=== PATIENT | female | born 1940 | race Caucasian/White ===

== ENCOUNTER → 2024-02-18 08:13 | Outpatient (REF) | payer MEDICARE, BC, SELFPAY ==
[2024-02-18 10:01] LABS: % Basophils 0.4 % (0-2); % Eosinophils 4.3 % (0-6); % Immature Granulocytes 0.4 % (0-0.5); % Monocytes 7.5 % (1.7-9.3); % Neutrophils 58.4 % (42.2-75.2); Absolute Eosinophils 0.2 10^3/uL (0-0.7); Absolute Lymphocytes 1.4 10^3/uL (1.2-3.4); Absolute Monocytes 0.4 10^3/uL (0.1-0.6); Absolute Neutrophils 2.7 10^3/uL (1.4-6.5); Hematocrit 44.6 % (37.0-47.0); Hemoglobin 14.6 g/dL (12.0-16.0); Mean Corp Hgb Conc. 32.7 g/dL (33.0-37.0); Mean Corpuscular Hgb 31.5 pg (27.0-31.0); Mean Corpuscular Volume 96.3 fL (81.0-99.0); Mean Platelet Volume 10.2 fL (7.4-10.4); Nucleated Red Blood Cells % 0 %; Platelet Count 187 10^3/uL (130-400); Red Blood Cell Count 4.63 10^6/uL (4.20-5.40); Red Cell Dist. Width 13.8 % (11.5-14.5); White Blood Cell Count 4.7 10^3/uL (4.8-10.8)
[2024-02-18 10:34] LABS: ALT (SGPT) 17 U/L (0-35); AST (SGOT) 31 U/L (14-36); Albumin 4.4 g/dl (3.5-5.0); Alkaline Phosphatase 49 U/L (38-126); Blood Urea Nitrogen 13 mg/dl (7-17); Calcium 9.2 mg/dl (8.4-10.2); Carbon Dioxide 28 mmol/L (22-30); Chloride 105 mmol/L (98-107); Glucose 105 mg/dl (70-99); HDL Cholesterol 96 mg/dl; Iron 106 ug/dl (37-170); LDL Cholesterol, Calculated 55 mg/dl; Magnesium 2.1 mg/dl (1.6-2.3); Potassium 4.5 mmol/L (3.5-5.1); Sodium 140 mmol/L (135-145); Total Bilirubin 0.5 mg/dl (0.2-1.3); Total Cholesterol 164 mg/dl (50-199); Total Protein 6.6 g/dl (6.3-8.2); Triglyceride 65 mg/dl (10-149); Very Low Density Lipoprotein 13 mg/dl (0-30); eGFR > 60.00
[2024-02-18 10:38] LABS: IgA 177 mg/dl (70-400)
[2024-02-18 10:43] LABS: Free T4 1.59 ng/dl (0.78-2.19); Vitamin D, 25-OH*** 34.2 ng/mL (30-80)
[2024-02-18 10:50] LABS: Percent Saturation 31 % (20-50); Total Iron Binding Capacity 332 ug/dl (265-497)
[2024-02-18 10:56] LABS: TSH 0.73 uIU/ml (0.47-4.68)
[2024-02-18 11:00] LABS: Ferritin 26.6 ng/ml (11.1-264.0)
[2024-02-18 11:16] LABS: Vitamin B12 499 pg/ml (239-931)
[2024-02-20 16:13] LABS: Endomysial IgA Antibody Titer <1:10 (<1:10)
== END ==
LOC: REG 08:13
PROVIDERS: ATTENDING PHYSICIAN Internal Medicine; FAMILY PHYSICIAN Nurse Practitioner Primary Care
DX: R14.0 Abdominal distension (gaseous) (principal); Z86.010 Personal history of colon polyps; I48.0 Paroxysmal atrial fibrillation; E78.2 Mixed hyperlipidemia; E03.8 Other specified hypothyroidism; K21.9 Gastro-esophageal reflux disease without esophagitis; M80.00XA Age-related osteoporosis with current pathological fracture, unspecified site, initial encounter for fracture; Z79.899 Other long term (current) drug therapy
CPT/HCPCS: 36415; 80053; 80061; 82306; 82607; 82728; 82784; 83516; 83540; 83550; 83735; 84439; 84443; 85025; 86231

== ENCOUNTER → 2024-05-21 09:57 | Outpatient (REF) | payer MEDICARE, BC, SELFPAY | LOC: RCS 09:57 | PROVIDERS: ATTENDING PHYSICIAN Nurse Practitioner Primary Care | DX: I48.0 Paroxysmal atrial fibrillation (principal); I49.1 Atrial premature depolarization; R07.89 Other chest pain | CPT/HCPCS: 93306 ==

== ENCOUNTER → 2024-05-26 07:23 | Outpatient (REF) | payer MEDICARE, BC, SELFPAY ==
[2024-05-26] MEDS: FLUSH (NSS) 1 FLUSH IV (09:50)
[2024-05-26] MEDS: LEXISCAN 0.4 MG IV (09:50)
== END ==
LOC: RCS 07:23
PROVIDERS: ATTENDING PHYSICIAN Nurse Practitioner Primary Care; REFERRING PHYSICIAN Internal Medicine Cardiovascular Disease
DX: E78.2 Mixed hyperlipidemia (principal); R07.89 Other chest pain
CPT/HCPCS: 78452; 93017; A9500; J2785

== ENCOUNTER → 2024-06-10 10:06 | Outpatient (REF) | payer MEDICARE, BC, SELFPAY | LOC: PAVMRI 10:06 | PROVIDERS: ATTENDING PHYSICIAN Nurse Practitioner Primary Care | DX: M80.00XA Age-related osteoporosis with current pathological fracture, unspecified site, initial encounter for fracture (principal); G60.9 Hereditary and idiopathic neuropathy, unspecified; M48.061 Spinal stenosis, lumbar region without neurogenic claudication | CPT/HCPCS: 72148 ==

== ENCOUNTER → 2024-06-24 15:02 | Outpatient (REF) | payer MEDICARE, BC, SELFPAY ==
[2024-06-29 15:36] LABS: Pancreatic Elastase, Fecal >800 ug/g (>=100)
== END ==
LOC: REG 15:02
PROVIDERS: ATTENDING PHYSICIAN Internal Medicine Cardiovascular Disease; FAMILY PHYSICIAN Internal Medicine Geriatric Medicine; OTHER PHYSICIAN Internal Medicine
DX: I65.23 Occlusion and stenosis of bilateral carotid arteries (principal); R14.0 Abdominal distension (gaseous); Z86.0109 Personal history of other colon polyps
CPT/HCPCS: 82653; 93880

== ENCOUNTER 2024-11-02 06:01 | Day surgery (SDC) | payer MEDICARE, BC, SELFPAY ==
[2024-10-17 09:00] VITALS: BMI 17.7
[2024-11-02] VITALS (10 sets, daily range): BP systolic 98–141; BP diastolic 49–77; BMI 17.6
--- NOTE | 2024-11-02 08:14 | ITS.CL.ABL ---
[employer] - Ablation
Ablation
Procedure Report:
ELECTROPHYSIOLOGIC STUDY AND POSSIBLE ABLATION
DATE: November 02, 2024
Primary Care Provider: CEFERINO Rico
Primary Vacuum Form Operator: Dr Betsy Elliott
INDICATION:
Symptomatic Atrial Fibrillation and atrial flutter, paroxysmal.
HISTORY: See H and P.
Symptomatic AF, poorly controlled with attempted medical therapy
HAS-BLED:
Age
CHADSVASc: 4
Age
Vascular Dz
F Gender
PRESENTING RHYTHM: SR
HISTORY: See H and P.
Symptomatic AF, poorly controlled with attempted medical therapy.
ANTICOAGULATION: Rivaroxaban 20 mg daily
'TIME-OUT': called and confirmed.
SEDATION/ANESTHESIA: provided via the anesthesia department using general anesthesia.
PROCEDURE:
Ultrasound Guidance with real-time visualization of needle insertion and vessel patency performed by ar for femoral venous Vascular Access. Images were taken and saved for the patient's permanent record. Imaging findings typical femoral venous
anatomy. Direct visualization of needle puncture into the femoral vein was observed and recorded.
A decapolar CS catheter was placed within the CS for mapping and pacing.
The intracardiac ultrasound catheter was positioned in the RA for continuous intracardiac ultrasound imaging.
Heparin bolus and infusion to target ACT at 300 -350 seconds was administered. Transseptal puncture was performed. This entailed advancing a sheath with dilator into the superior vena cava and withdrawing both (monitoring intracardiac ultrasound,
fluoroscopy and tip pressure) with the tip oriented toward the atrial septum. The fossa ovalis was engaged (indicated by sudden displacement of the sheath tip as well as tenting of the fossa seen on intracardiac ultrasound).
Transseptal puncture was performed. Left atrial catheter position was confirmed by echocardiographic imaging, pressure monitoring (LA mean pressure 10 mm Hg) and fluoroscopy. The sheath was advanced over the dilator and positioned in the left
atrium.
The [employer] multipolar mapping/ablation Sphere-9 catheter was positioned through the transseptal sheath for high density mapping.
Geometry and voltage mapping was performed using the [employer] mapping system for three-dimensional electroanatomical mapping.
Catheter positioning was guided and confirmed using both I.C.E. and fluoroscopy.
PV isolation approach was used to electrically isolate each PV ostia (LSPV, LIPV, RSPV, RIPV).
Additional energy applications/additional ablation set was required to accomplish wide area circumferential ablation around each of the pulmonary vein sets and additionally ablation to accomplish LA posterior wall ablation.
Programmed electrical stimulation was performed and with burst atrial pacing at 300 ms and irregular atrial tachycardia was induced this degenerated to atrial fibrillation. Cardioversion restored sinus rhythm and with catheter manipulation of the
decapolar catheter in the right atrium atrial fibrillation was once again induced and cardioversion performed. Following this programmed electrical stimulation with burst atrial pacing as well as delivery of atrial decremental extrastimuli failed
to induce any arrhythmias.
Remapping with the Sphere-9 catheter found that all PVPs were eliminated at each vein demonstrating entrance block. Also pacing around the the circumference of the ostia was performed at 10 ma and 2.0 msec output to assess for exit block. This
demonstrated electrical isolation at each of the pulmonary vein ostia (LSPV, LIPV, RSPV, RIPV). Mapping demonstrated an area of recovered atrial electrograms at the floor of the left atrium posteriorly which were addressed with additional ablation
using pulsed electric field energy. Thereafter there is entrance and exit block at the LA posterior wall.
Programmed electrostimulation failed to induce any sustained arrhythmias.
There is a history of atrial flutter observed on outpatient monitoring (uncertain if typical or atypical). Given the inability to induce sustained atrial flutter or sustained regular atrial tachycardia no additional ablation was performed after PV
isolation and isolation of the posterior wall of the left atrium.
I.C.E. :
Pre-Ablation Post-Ablation
LVEF: 55 % 55 %
WMA: none none
Pericardial effusion: none none
COMPLICATIONS:
None
SUMMARY:
- Mapping and ablation to isolate the PVs
- Additional AF ablation set after PVI.
- 3-D Electroanatomical Mapping
- Intracardiac Ultrasound
- Ultrasound guidance for vascular access
Post ablation, I discussed today's findings and results with the patient's daughter, Karon.
RECOMMENDATIONS:
- Observe in monitored bed.
- Maintain oral anticoagulation.
- Maintain planned office visit with Dr Betsy Elliott 02/14/25
- Continue cardiovascular care with Dr Betsy Elliott
- Would maintain lifelong oral anticoagulation given her elevated CHADSVASc = 4
- Unable to induce a mappable atrial flutter therefore no atrial flutter ablation was performed. Should she recur with atrial arrhythmias including atrial flutter will consider remapping and if still uninducible at that point would then consider
empiric CTI ablation even given uncertainty of her clinical arrhythmia being CTI dependent.
Copy to:
CEFERINO Rico
Dr Betsy Elliott
[2024-11-02 09:20] LABS: ACT-LR - POC 364 Seconds (116-155)
[2024-11-02 09:44] LABS: ACT-LR - POC 358 Seconds (116-155)
[2024-11-02 10:17] LABS: ACT-LR - POC > 397 Seconds (116-155)
[2024-11-02] MEDS: ANESTHETIC LOZENGE 1 LOZENGE PO (10:56)
--- NOTE | 2024-11-02 14:11 | W.PN.UPDATE ---
Addendum entered and electronically signed by CEFERINO Mcguire 11/02/24 14:15:
Her HR has been 40-60, we will decrease her metoprolol to 25mg daily starting tomorrow.
Original Note:
Update Note
Progress Note Update
84 yo WF s/p PVI (same day). She denies cp, sob, len diet, voiding, amb w/o dizziness, EKG SR/SB, R fem site c/d/i. She will resume Eliquis tonight at home. Activity restrictions reviewed. She will f/u DCA in 2 mo. She is for d/c home after 230pm.
== END 2024-11-02 14:30 | disposition home or self-care (01) ==
LOC: CATH 06:01
PROVIDERS: ATTENDING PHYSICIAN Internal Medicine Cardiovascular Disease; FAMILY PHYSICIAN Nurse Practitioner Primary Care; OTHER PHYSICIAN Internal Medicine Cardiovascular Disease
DX: I48.0 Paroxysmal atrial fibrillation (principal); I44.0 Atrioventricular block, first degree; I70.0 Atherosclerosis of aorta; I65.29 Occlusion and stenosis of unspecified carotid artery; I49.3 Ventricular premature depolarization; I49.1 Atrial premature depolarization; I08.0 Rheumatic disorders of both mitral and aortic valves; J43.9 Emphysema, unspecified; K21.9 Gastro-esophageal reflux disease without esophagitis; K22.70 Barrett's esophagus without dysplasia; Z86.0100 Personal history of colon polyps, unspecified; K57.90 Diverticulosis of intestine, part unspecified, without perforation or abscess without bleeding; K76.0 Fatty (change of) liver, not elsewhere classified; K58.9 Irritable bowel syndrome, unspecified; Z87.19 Personal history of other diseases of the digestive system; G25.81 Restless legs syndrome; G62.9 Polyneuropathy, unspecified; M51.369 Other intervertebral disc degeneration, lumbar region without mention of lumbar back pain or lower extremity pain; M19.90 Unspecified osteoarthritis, unspecified site; E03.9 Hypothyroidism, unspecified; I73.00 Raynaud's syndrome without gangrene; M85.80 Other specified disorders of bone density and structure, unspecified site; F41.9 Anxiety disorder, unspecified; G47.00 Insomnia, unspecified; Z87.891 Personal history of nicotine dependence; Z79.890 Hormone replacement therapy; Z79.899 Other long term (current) drug therapy; Z79.01 Long term (current) use of anticoagulants; Z88.0 Allergy status to penicillin; Z88.2 Allergy status to sulfonamides; Z88.1 Allergy status to other antibiotic agents
CPT/HCPCS: C1766; C1730; C1894; C1892; C1733; 76937; 85347; 86900; 86901; 93005; 93656; 93657

== ENCOUNTER → 2025-01-12 09:55 | Outpatient (REF) | payer MEDICARE, BC, SELFPAY | LOC: RAD 09:55 | PROVIDERS: ATTENDING PHYSICIAN Nurse Practitioner Primary Care | DX: M80.00XA Age-related osteoporosis with current pathological fracture, unspecified site, initial encounter for fracture (principal); N95.9 Unspecified menopausal and perimenopausal disorder | CPT/HCPCS: 77080 ==

== ENCOUNTER → 2025-03-06 06:58 | Outpatient (REF) | payer MEDICARE, BC, SELFPAY ==
[2025-03-06 07:39] LABS: % Basophils 0.7 % (0-2); % Eosinophils 3.5 % (0-6); % Immature Granulocytes 0.2 % (0-0.5); % Lymphocytes 33.7 % (20.5-51.1); % Monocytes 8.9 % (1.7-9.3); Absolute Eosinophils 0.1 10^3/uL (0-0.7); Absolute Lymphocytes 1.4 10^3/uL (1.2-3.4); Absolute Monocytes 0.4 10^3/uL (0.1-0.6); Absolute Neutrophils 2.1 10^3/uL (1.4-6.5); Hematocrit 42.4 % (37.0-47.0); Hemoglobin 13.9 g/dL (12.0-16.0); Mean Corp Hgb Conc. 32.8 g/dL (33.0-37.0); Mean Corpuscular Hgb 31.2 pg (27.0-31.0); Mean Corpuscular Volume 95.1 fL (81.0-99.0); Mean Platelet Volume 9.9 fL (7.4-10.4); Nucleated Red Blood Cells % 0 %; Platelet Count 172 10^3/uL (130-400); Red Blood Cell Count 4.46 10^6/uL (4.20-5.40); Red Cell Dist. Width 13.7 % (11.5-14.5)
[2025-03-06 08:22] LABS: ALT (SGPT) 27 U/L (0-35); AST (SGOT) 38 U/L (14-36); Alkaline Phosphatase 51 U/L (38-126); Blood Urea Nitrogen 15 mg/dl (7-17); Calcium 9.6 mg/dl (8.4-10.2); Carbon Dioxide 26 mmol/L (22-30); Chloride 107 mmol/L (98-107); Creatine Phosphokinase 175 U/L (30-135); Glucose 109 mg/dl (70-99); HDL Cholesterol 101 mg/dl; LDL Cholesterol, Calculated 57 mg/dl; Potassium 4.4 mmol/L (3.5-5.1); Sodium 142 mmol/L (135-145); Total Bilirubin 0.6 mg/dl (0.2-1.3); Total Cholesterol 172 mg/dl (50-199); Total Protein 7.5 g/dl (6.3-8.2); Triglyceride 74 mg/dl (10-149); Very Low Density Lipoprotein 14 mg/dl (0-30); eGFR > 60.00
[2025-03-06 08:56] LABS: Erythrocyte Sed Rate 8 mm/hour (0-20)
[2025-03-06 14:04] LABS: C-Reactive Protein < 5.00 mg/L (0.0-10.00)
[2025-03-06 14:32] LABS: Free T4 2.11 ng/dl (0.78-2.19)
[2025-03-06 17:20] LABS: Vitamin D, 25-OH*** 41.7 ng/mL (30-80)
[2025-03-06 20:44] LABS: Vitamin B12 372 pg/ml (239-931)
[2025-03-07 23:23] LABS: ANA, IgG Reflex to HEp-2 None Detected (None Detected)
[2025-03-09 00:20] LABS: Albumin 4.96 g/dL (3.75-5.01); Alpha 1 Globulin 0.33 g/dL (0.19-0.46); Alpha 2 Globulin 0.77 g/dL (0.48-1.05); Free Kappa Light Chains,Quant 13.45 mg/L (3.30-19.40); Free Lambda Light Chains,Quant 15.25 mg/L (5.71-26.30); IgA 169 mg/dL (68-408); IgG 495 mg/dL (768-1632); IgM 43 mg/dL (35-263); Immunofixation Electrophoresis IFE Done; Kappa/Lambda Fr Light Ratio 0.88 (0.26-1.65); Total Protein-Electrophoresis 7.4 g/dL (6.3-8.2)
== END ==
LOC: REG 06:58
PROVIDERS: ATTENDING PHYSICIAN Nurse Practitioner Primary Care
DX: E78.2 Mixed hyperlipidemia (principal); E03.8 Other specified hypothyroidism; G60.9 Hereditary and idiopathic neuropathy, unspecified; Z79.899 Other long term (current) drug therapy
CPT/HCPCS: 36415; 80053; 80061; 82306; 82550; 82607; 82784; 83521; 84155; 84165; 84439; 84443; 85025; 85652; 86038; 86140; 86334

== ENCOUNTER 2025-03-21 06:32 | Day surgery (SDC) | payer MEDICARE, BC, SELFPAY | END 2025-03-21 11:39 | disposition home or self-care (01) | LOC: GI 06:32 | PROVIDERS: ATTENDING PHYSICIAN Internal Medicine | DX: R14.0 Abdominal distension (gaseous) (principal); K22.4 Dyskinesia of esophagus; K22.70 Barrett's esophagus without dysplasia | CPT/HCPCS: 43239; 88305; 88342 ==

== ENCOUNTER → 2025-05-02 07:38 | Outpatient (REF) | payer MEDICARE, BC, SELFPAY ==
[2025-05-02 09:19] LABS: Hematocrit 41.0 % (37.0-47.0); Hemoglobin 13.1 g/dL (12.0-16.0); Mean Corp Hgb Conc. 32.0 g/dL (33.0-37.0); Mean Corpuscular Volume 94.0 fL (81.0-99.0); Nucleated Red Blood Cells % 0 %; Platelet Count 225 10^3/uL (130-400); Red Cell Dist. Width 15.1 % (11.5-14.5)
[2025-05-02 10:36] LABS: Ferritin 16.8 ng/ml (11.1-264.0)
[2025-05-02 11:35] LABS: ALT (SGPT) 24 U/L (0-35); AST (SGOT) 32 U/L (14-36); Albumin 4.6 g/dl (3.5-5.0); Alkaline Phosphatase 55 U/L (38-126); Blood Urea Nitrogen 11 mg/dl (7-17); Calcium 9.4 mg/dl (8.4-10.2); Carbon Dioxide 27 mmol/L (22-30); Chloride 102 mmol/L (98-107); Glucose 97 mg/dl (70-99); Iron 65 ug/dl (37-170); Potassium 4.3 mmol/L (3.5-5.1); Sodium 137 mmol/L (135-145); Total Protein 6.9 g/dl (6.3-8.2); eGFR > 60.00
[2025-05-02 11:44] LABS: Total Iron Binding Capacity 410 ug/dl (265-497)
[2025-05-04 23:55] LABS: Albumin 4.31 g/dL (3.75-5.01); Free Kappa Light Chains,Quant 14.05 mg/L (3.30-19.40); Free Lambda Light Chains,Quant 15.48 mg/L (5.71-26.30); Immunofixation Electrophoresis IFE Done; Kappa/Lambda Fr Light Ratio 0.91 (0.26-1.65); Total Protein-Electrophoresis 6.7 g/dL (6.3-8.2)
== END ==
LOC: REG 07:38
PROVIDERS: ATTENDING PHYSICIAN Nurse Practitioner Primary Care
DX: E03.8 Other specified hypothyroidism (principal); G60.9 Hereditary and idiopathic neuropathy, unspecified; G25.81 Restless legs syndrome; R74.8 Abnormal levels of other serum enzymes; E61.1 Iron deficiency; Z79.899 Other long term (current) drug therapy
CPT/HCPCS: 36415; 80053; 82085; 82550; 82728; 82784; 83521; 83540; 83550; 84155; 84165; 85025; 85652; 86334